=== PATIENT | female | born 1990 | race Caucasian/White ===

== ENCOUNTER 2017-09-03 09:19 | Emergency (ER) | payer OTHER ==
[2017-09-03 09:30] VITALS: TEMP 98.2; BMI 38.5
--- NOTE | 2017-09-03 09:31 | PDOC ---
History of Present Illness - General Chief Complaint: Vaginal Bleeding Stated Complaint: 10 WKS Time Seen by Provider: 09/03/17 09:30 - History of Present Illness Initial Comments: 09/03/17 10:52 Ms. Thompson is a 26 yo female w/ no pmh who presents for evaluation of several days of vaginal spotting that progressed to passing tissue with cramps late last night/this morning. She reports that she believes she is currently 10 weeks but that she got checked out for light spotting on Sunday at [facility] in [place] and was told she had demise. This is an unwanted but she was concerned by the tissue passing / pain and wanted to get checked out. The patient denies chest pain, shortness of breath, headache and dizziness. Denies fever, chills, nausea, vomit, diarrhea and constipation. Denies dysuria, frequency, urgency and hematuria. Allergies: NKDA Past History - Past Medical History Allergies/Adverse Reactions: Allergies Allergy/AdvReac Type Severity Reaction Status Date / Time No Known Allergies Allergy Verified 09/03/17 13:49 Home Medications: Ambulatory Orders Pnv No.122/Iron/Folic Acid [ Multi Tablet] 1 each PO DAILY 09/03/17 COPD: No Other medical history: denies - Suicide/Smoking/Psychosocial Hx Smoking History: Never smoked Have you smoked in the past 12 months: No Hx Alcohol Use: No Drug/Substance Use Hx: No Review of Systems - Review of Systems Comments:: 09/03/17 09:46 GENERAL/CONSTITUTIONAL: No fever or chills. No weakness. HEAD, EYES, EARS, NOSE AND THROAT: No change in vision. No ear pain or discharge. No sore throat. CARDIOVASCULAR: No chest pain or shortness of breath RESPIRATORY: No cough, wheezing, or hemoptysis. GASTROINTESTINAL: No nausea, vomiting, diarrhea or constipation. GENITOURINARY: No dysuria, frequency, or change in urination. MUSCULOSKELETAL: No joint or muscle swelling or pain. No neck or back pain. SKIN: No rash NEUROLOGIC: No headache, vertigo, loss of consciousness, or change in strength/ sensation. ENDOCRINE: No increased thirst. No abnormal weight change HEMATOLOGIC/LYMPHATIC: No anemia, easy bleeding, or history of blood clots. ALLERGIC/IMMUNOLOGIC: No hives or skin allergy. *Physical Exam - Vital Signs Last Vital Signs Temp Pulse Resp BP Pulse Ox 98.2 F 89 17 136/82 98 09/03/17 09:27 09/03/17 09:27 09/03/17 09:27 09/03/17 09:27 09/03/17 09:27 - Physical Exam Comments: 09/03/17 09:47 GENERAL: Awake, alert, and fully oriented, in no acute distress HEAD: No signs of trauma, normocephalic, atraumatic EYES: PERRLA, EOMI, sclera anicteric, conjunctiva clear ENT: Auricles normal inspection, hearing grossly normal, nares patent, oropharynx clear without exudates. Moist mucosa NECK: Normal ROM, supple, no lymphadenopathy, JVD, or masses LUNGS: No distress, speaks full sentences, clear to auscultation bilaterally HEART: Regular rate and rhythm, normal S1 and S2, no murmurs, rubs or gallops, peripheral pulses normal and equal bilaterally. ABDOMEN: Soft, nontender, normoactive bowel sounds. No guarding, no rebound. No masses EXTREMITIES: Normal inspection, Normal range of motion, no edema. No clubbing or cyanosis. NEUROLOGICAL: Cranial nerves II through XII grossly intact. Normal speech, normal gait, no focal sensorimotor deficits SKIN: Warm, Dry, normal turgor, no rashes or lesions noted. VAGINAL: Clots noted in os on vaginal exam. Internal os closed. No masses or CMT appreciated. ED Treatment Course - LABORATORY CBC & Chemistry Diagram: 09/03/17 10:57 09/03/17 10:20 Medical Decision Making - Medical Decision Making 09/03/17 10:52 Patient in process of completing . Will evaluate for retained POC and follow-up with OBGYN as appropriate. 09/03/17 13:37 US revealed 1.6 cm ap diameter suspected retained POC. Will consult SCREENER AND BLENDER for follow-up needs and disposition as appropriate. 09/03/17 14:17 Discussed with Rossy Paris (patient's peoplesoft taleo manager) who agreed with plan to follow -up outpatient this week. Patient will call for appt with one of the doctor's at clinic for evaluation this week. Patient verbalized understanding. Will d/c to home. *DC/Admit/Observation/Transfer Diagnosis at time of Disposition: Miscarriage - Discharge Dispostion Disposition: HOME - Referrals - Patient Instructions Printed Discharge Instructions: DI for Miscarriage Additional Instructions: Please follow-up as discussed with OBGYN doctor on Sunday. If any pain, fever, or other concerning symptoms please return. - Post Discharge Activity
--- NOTE | 2017-09-03 09:32 | PDOC ---
Attending Attestation - Resident Resident Name: Baltazar Oneal - HPI HPI: 09/03/17 10:56 Pt presents to the ED complaining of heavy vaginal bleeding and passing clots that started yesterday. Patient is 6 weeks and was seen in [place] yesterday for vaginal bleeding and was told that she had demise Presents today because the bleeding became much heavier overnight. - Physicial Exam PE: 09/03/17 10:59 Agree with resident's exam. There is a small clot in the os. External os is closed. Small amount of blood in vaginal vault. - Medical Decision Making 09/03/17 11:00 Pt presents to the ED complaining of vaginal bleeding. Os is closed on my exam. Will perform transvaginal US to check for retained products. If US shows no retained products, will discharge home with OB follow up. If US shows retained products, will consult TERRAPIN FISHER. 09/03/17 14:39 US shows thickened endometrial stripe. Case discussed with rubber block layer [place], who asks that the patient make an appointment for this week. Patient instructed to return to the ED for worsening bleeding, fevers or severe pain.
[2017-09-03 10:47] LABS: INR 1.17 (0.82-1.09); PROTHROMBIN TIME (PATIENT) 13.2 SEC (9.98-11.88)
[2017-09-03 10:50] LABS: ACTIVATED PTT 26.8 SECONDS (26.9-34.4)
[2017-09-03 10:57] LABS: ANION GAP 7 (8-16); BILIRUBIN,TOTAL 0.3 mg/dL (0.2-1.0); CO2 27 mmol/L (21-32); CREATININE 0.5 mg/dL (0.55-1.02); GLUCOSE,RANDOM 91 mg/dL (74-106); SGOT/AST 19 U/L (15-37); SGPT/ALT 19 U/L (12-78)
[2017-09-03 10:59] LABS: ALK PHOS 59 U/L (45-117)
[2017-09-03 11:04] LABS: BASOPHIL 0.6 % (0-2.0); EOSINOPHIL 2.5 % (0-4.5); MCHC 33.5 g/dl (32.0-36.0); MEAN CELL VOLUME 86.5 fl (80-96); MEAN PLT VOLUME 7.4 fl (7.5-11.1); NEUTROPHILS 62.9 % (42.8-82.8); PLATELET COUNT 230 K/MM3 (134-434); RDW 13.5 % (11.6-15.6); WHITE BLOOD COUNT 9.6 K/mm3 (4.0-10.0)
[2017-09-03] MEDS ORDERED: RHO(D) IMMUNE GLOBULIN 1,500 UNIT DISP.SYRIN IM ONE (12:04)
[2017-09-03 13:19] VITALS: BP 116/73; PULSE 84
== END 2017-09-03 15:03 | disposition home or self-care (01) ==
LOC: JER 09:19
PROC: 3E0234Z Introduction of Serum, Toxoid and Vaccine into Muscle, Percutaneous Approach (ICD-10-PCS; principal; 2017-09-03)
DX: O26.891 Other specified pregnancy related conditions, first trimester (principal); O02.1 Missed abortion; Z3A.10 10 weeks gestation of pregnancy
CPT/HCPCS: 36415; 76817-TC; 80053; 84702; 85025; 85610; 85730; 86850; 86900; 86901; 86999; 96372; 99283-25; J1561

== ENCOUNTER 2018-04-13 14:11 | Emergency (ER) | payer OTHER ==
[2018-04-13 14:17] VITALS: BP 130/64; PULSE 101; TEMP 97.8; BMI 42.0
--- NOTE | 2018-04-13 14:17 | PDOC ---
History of Present Illness - General Chief Complaint: Vaginal Bleeding Stated Complaint: VAGINAL BLEEDING (18 WKS ) Time Seen by Provider: 04/13/18 14:16 - History of Present Illness Initial Comments: 04/13/18 14:16 Ms. Thompson is a 27 yo female 18 weeks w/ significant pmh of prior miscarriage who presents for evaluation of 3 day history of vaginal itching and 1 day history of brownish discharge. She reports she noticed upon waking up yesterday morning and had to change her underwear. She is currently being followed by Dr. Avelina Shah and has had full evaluation to date. The patient denies chest pain, shortness of breath, headache and dizziness. Denies fever, chills, nausea, vomit, diarrhea and constipation. Denies dysuria, frequency, urgency and hematuria. Allergies: NKDA Past History - Past Medical History Allergies/Adverse Reactions: Allergies Allergy/AdvReac Type Severity Reaction Status Date / Time No Known Allergies Allergy Verified 04/13/18 14:15 Home Medications: Ambulatory Orders No122/Iron/Folic Acid [ Multi Tablet] 1 each PO DAILY 09/03/17 COPD: No - Suicide/Smoking/Psychosocial Hx Smoking History: Never smoked Have you smoked in the past 12 months: No Hx Alcohol Use: No Drug/Substance Use Hx: No Review of Systems - Review of Systems Comments:: 04/13/18 14:17 GENERAL/CONSTITUTIONAL: No fever or chills. No weakness. HEAD, EYES, EARS, NOSE AND THROAT: No change in vision. No ear pain or discharge. No sore throat. CARDIOVASCULAR: No chest pain or shortness of breath RESPIRATORY: No cough, wheezing, or hemoptysis. GASTROINTESTINAL: No nausea, vomiting, diarrhea or constipation. GENITOURINARY: +Vaginal discharge / itching as described. No dysuria, frequency , or change in urination. MUSCULOSKELETAL: No joint or muscle swelling or pain. No neck or back pain. SKIN: No rash NEUROLOGIC: No headache, vertigo, loss of consciousness, or change in strength/ sensation. ENDOCRINE: No increased thirst. No abnormal weight change HEMATOLOGIC/LYMPHATIC: No anemia, easy bleeding, or history of blood clots. ALLERGIC/IMMUNOLOGIC: No hives or skin allergy. *Physical Exam - Physical Exam Comments: 04/13/18 14:17 GENERAL: Awake, alert, and fully oriented, in no acute distress HEAD: No signs of trauma, normocephalic, atraumatic EYES: PERRLA, EOMI, sclera anicteric, conjunctiva clear ENT: Auricles normal inspection, hearing grossly normal, nares patent, oropharynx clear without exudates. Moist mucosa NECK: Normal ROM, supple, no lymphadenopathy, JVD, or masses LUNGS: No distress, speaks full sentences, clear to auscultation bilaterally HEART: Regular rate and rhythm, normal S1 and S2, no murmurs, rubs or gallops, peripheral pulses normal and equal bilaterally. ABDOMEN: Soft, nontender, normoactive bowel sounds. No guarding, no rebound. No masses EXTREMITIES: Normal inspection, Normal range of motion, no edema. No clubbing or cyanosis. NEUROLOGICAL: Cranial nerves II through XII grossly intact. Normal speech, normal gait, no focal sensorimotor deficits SKIN: Warm, Dry, normal turgor, no rashes or lesions noted. : No CMT, No adnexal tenderness, no blood in vaginal vault, scant white discharge noted, os closed. Medical Decision Making - Medical Decision Making 04/13/18 14:52 Ms. Thompson is a 27 yo female w/ pmh as described who presents for evaluation of discharge noted on exam yesterday. Patient currently stable and well appearing with no complaints of pain or other spotting. PE negative for concerning findings, on repeat interview patient relates discharge was more yellow in nature. Do not believe any bleeding at this time and will not administer rhogam. Bedside US revealed HR of 147 with good movement. Patient told to follow-up with ILLUSIONIST on Sunday for further evaluation and return to ER immediately if any bleeding. Patient verbalized agreement and understanding and will comply. 04/13/18 15:48 Labs grossly unconcerning as below. Repeat pulse 88. No concern for acute process at this time. Discharging to home for outpatient followup. Laboratory Results - last 24 hr 04/13/18 14:30 Urine Color Yellow Urine Appearance Clear Urine pH 6.0 Ur Specific Ranger 1.017 Urine Protein Negative Urine Glucose (UA) Negative Urine Ketones Negative Urine Blood Negative Urine Nitrite Negative Urine Bilirubin Negative Urine Urobilinogen 4.0 e.u/dl H Ur Leukocyte Esterase 1+ H Urine WBC (Auto) 3 Urine RBC (Auto) 1 Ur Epithelial Cells Few Urine Mucus Rare *DC/Admit/Observation/Transfer Diagnosis at time of Disposition: Vaginal discharge - Discharge Dispostion Disposition: HOME - Referrals Referrals: Ari Grace [Primary Care Provider] - Pauline Shah MD [Staff Physician] - - Patient Instructions Printed Discharge Instructions: DI for Vaginal Discharge Additional Instructions: You were evaluated today in the ER for vaginal discharge. As no blood was found on exam and no report of bleeding, decision was made not to administer rhogam at this time. Please follow-up with ILLUSIONIST on Sunday as discussed. Return to ER immediately if any vaginal bleeding, fever, chills, or other concerning symptoms. - Post Discharge Activity
--- NOTE | 2018-04-13 14:19 | PDOC ---
Attending Attestation - Resident Resident Name: Baltazar Oneal - HPI HPI: 04/13/18 15:33 pt presents to the ED complaining of a three day history of yellowish vaginal discharge along with mild vaginal itching. Patient is 18 weeks by dates. Denies vaginal bleeding, abdominal pain or urinary complaints. Patient is Rh negative and has not yet received rhogham for this . - Physicial Exam PE: 04/13/18 15:42 Agree with resident exam. PAtient is alert and oriented and in no acute distress. Abdomen is gravid, but is soft, non distended and non tender. - Medical Decision Making 04/13/18 15:47 Pt presents to the ED complaining of vaginal itching. Pelvic exam is normal. bedside US with movement and normal FHR. Patient denies vaginal bleeding on repeated questioning. Will discharge home with follow up with referral to her PECAN CLEANER.
[2018-04-13] MEDS ORDERED: RHO(D) IMMUNE GLOBULIN 1,500 UNIT DISP.SYRIN IM ONE (14:50)
[2018-04-13 15:31] LABS: URINE APPEARANCE CLEAR; URINE BILIRUBIN NEGATIVE (<2.0 mg/dL); URINE COLOR YELLOW; URINE GLUCOSE (UA) NEGATIVE (NEGATIVE); URINE KETONE NEGATIVE (NEGATIVE); URINE NITRITE NEGATIVE (NEGATIVE); URINE PROTEIN NEGATIVE (NEGATIVE); URINE UROBILINOGEN 4.0 E.U/dl mg/dL (0.2-1.0)
[2018-04-13 15:35] LABS: URINE LEUK ESTERASE 1+ (NEGATIVE)
[2018-04-13 15:38] LABS: EPI CELLS FEW /HPF (FEW); URINE MUCUS RARE
== END 2018-04-13 15:56 | disposition home or self-care (01) ==
LOC: JER 14:11
DX: O26.892 Other specified pregnancy related conditions, second trimester (principal); N89.8 Other specified noninflammatory disorders of vagina; Z3A.18 18 weeks gestation of pregnancy
CPT/HCPCS: 81003; 81015; 87086; 99283-25

== ENCOUNTER 2018-09-06 05:05 | Inpatient (IN) | payer OTHER ==
[2018-09-06 06:14] VITALS: BMI 44.4
[2018-09-06 06:15] LABS: BASO % 0.3 % (0-2.0); EOS % 1.2 % (0-4.5); HEMOGLOBIN 11.3 GM/dL (10.7-15.3); LYMPH % 23.6 % (8-40); MCH 28.2 pg (25.7-33.7); MCHC 33.3 g/dl (32.0-36.0); MEAN CELL VOLUME 84.4 fl (80-96); MEAN PLT VOLUME 8.1 fl (7.5-11.1); MONO % 6.3 % (3.8-10.2); NEUT % 68.6 % (42.8-82.8); PLATELET COUNT 239 K/MM3 (134-434); RBC 4.02 M/mm3 (3.60-5.2); RDW 14.7 % (11.6-15.6); WHITE BLOOD COUNT 8.8 K/mm3 (4.0-10.0)
[2018-09-06] MEDS ORDERED: DEXTROSE 5%-LACTATED RINGERS 1,000 ML IV ONE (06:19)
[2018-09-06 06:23] LABS: INR 0.96 (0.83-1.09); PROTHROMBIN TIME (PATIENT) 11.3 SEC (9.7-13.0)
[2018-09-06 06:26] LABS: ACTIVATED PTT 24.4 SECONDS (25.2-36.5)
[2018-09-06 07:32] LABS: ANION GAP 9 MMOL/L (8-16); BLOOD UREA NITROGEN 10 mg/dL (7-18); CHLORIDE 106 mmol/L (98-107); CO2 21 mmol/L (21-32); CREATININE 0.6 mg/dL (0.55-1.3); GLUCOSE,RANDOM 78 mg/dL (74-106); POTASSIUM 4.8 mmol/L (3.5-5.1); SODIUM 135 mmol/L (136-145)
[2018-09-06] MEDS ORDERED: OXYTOCIN 30 UNITS in 0.9% NS 30 UNIT/500 ML INFUS.BAG IVPB ONE (08:49)
[2018-09-06] MEDS ORDERED: FENTANYL/BUPIVACAINE/NS/PF - PCEA - 50 ML DISP.SYRIN EP ONE (09:27)
[2018-09-06] MEDS: ELECTROLYTE-148 SOLN 1,000 ML IV SCH (09:36)
--- NOTE | 2018-09-06 09:36 | HP ---
Past Medical History - Admission Chief Complaint: Labor pain History of Present Illness: 27 yo @ 39 weeks gestation, EDC 09/10/18, admitted for labor pain associated with leakage of fluid. History Source: Patient Limitations to Obtaining History: No Limitations - Past Medical History ...: 3 ...Para: 1 ...Term: 1 ...: 0 ...Spon : 1 ...Induced : 0 ...Multiple Gestation: 0 ...EDC by Sono: 09/10/18 - Past Surgical History Past Surgical History: Yes: None Hx Myomectomy: No Hx Transabdominal Cerclage: No - Smoking History Smoking history: Never smoked Have you smoked in the past 12 months: No - Alcohol/Substance Use Hx Alcohol Use: No - Social History Usual Living Arrangement: Yes: With Child History of Recent Travel: No Home Medications - Allergies Allergies/Adverse Reactions: Allergies Allergy/AdvReac Type Severity Reaction Status Date / Time No Known Allergies Allergy Verified 09/02/18 12:33 - Home Medications Home Medications: Ambulatory Orders No122/Iron/Folic Acid [ Multi Tablet] 1 each PO DAILY 09/03/17 Valacyclovir HCl [Valtrex] 400 mg PO DAILY 09/02/18 Family Disease History - Family Disease History Family History: Unremarkable Review of Systems - Review of Systems Constitutional: reports: No Symptoms Eyes: reports: No Symptoms HENT: reports: No Symptoms Neck: reports: No Symptoms Cardiovascular: reports: No Symptoms Respiratory: reports: No Symptoms Gastrointestinal: reports: No Symptoms Genitourinary: reports: Pain Breasts: reports: No Symptoms Reported Musculoskeletal: reports: No Symptoms Integumentary: reports: No Symptoms Neurological: reports: No Symptoms Endocrine: reports: No Symptoms Hematology/Lymphatic: reports: No Symptoms Psychiatric: reports: No Symptoms Pain Intensity: 6 Physical Exam - Maternity Vital Signs: Vital Signs Temperature 97.8 F 09/06/18 08:00 Pulse Rate 91 H 09/06/18 09:00 Respiratory Rate 20 09/06/18 09:00 Blood Pressure 127/72 09/06/18 09:00 O2 Sat by Pulse Oximetry (%) Constitutional: Yes: Well Nourished Eyes: Yes: Conjunctiva Clear HENT: Yes: Atraumatic Neck: Yes: Supple Cardiovascular: Yes: Regular Rate and Rhythm Lungs: Clear to auscultation - Abdominal Exam/OB Number of Fetuses: Single Presentation: Vertex Intensity: Moderate - Vaginal Exam/OB Dilatation (cm): 6 Effacement (%): 90 Amniotic Membrane Status: Ruptured Amniotic Fluid: Yes: Clear Presentation: Vertex/Position Station: -1 - Physical Exam ...Motor Strength: WNL Psychiatric: Yes: Alert, Oriented - Labs Lab Results: CBC, BMP 09/06/18 06:00 09/06/18 06:00 Problem List - Problems (1) Pain during labor Code(s): O99.89 - OTH DISEASES AND CONDITIONS COMPL PREG/CHLDBRTH; R52 - PAIN, UNSPECIFIED (2) 39 weeks gestation of Code(s): Z3A.39 - 39 WEEKS GESTATION OF Assessment/Plan 39 weeks gestation Labor pain Admit to L&D Analgesia as needed Anticipate
[2018-09-06] MEDS ORDERED: OXYTOCIN 30 UNITS in 0.9% NS 30 UNIT/500 ML INFUS.BAG IVPB SCH (09:45)
[2018-09-06] MEDS ORDERED: NALOXONE HCL 0.4 MG/ML VIAL IVPUSH PRN (10:45)
[2018-09-06] MEDS ORDERED: FENTANYL/BUPIVACAINE/NS/PF - PCEA - 50 ML DISP.SYRIN EP SCH (10:45)
[2018-09-06] MEDS ORDERED: PHENYLEPHRINE HCL 10 MG/1 ML SINGLE DOSE VIAL ONE (12:05)
[2018-09-06] MEDS ORDERED: ePHEDrine SULFATE 50 MG/1 ML AMPULE ONE (12:05)
--- NOTE | 2018-09-06 12:11 | PN ---
Progress Note (short form) - Note Progress Note: Patient seen and evaluated. She's lying comfortably in bed status post epidural anesthesia. FHR : + decelerations with contractions [place] : + regular contractions VE : 6-7 / 100 / -1 AROM A/P : 39 weeks gestation of Non-Reassuring FHR Stat Consent signed Prep and shave Problem List - Problems (1) Pain during labor Code(s): O99.89 - OTH DISEASES AND CONDITIONS COMPL PREG/CHLDBRTH; R52 - PAIN, UNSPECIFIED (2) 39 weeks gestation of Code(s): Z3A.39 - 39 WEEKS GESTATION OF
[2018-09-06] MEDS ORDERED: ceFAZolin SODIUM 1 GM VIAL ONE (12:16)
[2018-09-06] MEDS ORDERED: OXYTOCIN 10 UNITS/ML VIAL ONE (12:31)
[2018-09-06] MEDS ORDERED: MINERAL OIL/PETROLATUM,WHITE 3.5 GM TUBE ONE (12:53)
[2018-09-06 13:00] LABS: ARTERIAL BLD GAS O2 SATURATION 37.1 % (90-98.9); ARTERIAL BLOOD GAS BASE EXCESS -1.7 meq/l (-2-2); ARTERIAL BLOOD GAS PCO2 50.5 mmHg (35-45); ARTERIAL BLOOD GAS PO2 17.9 mmHg (80-100); ARTERIAL BLOOD GAS pH 7.31 (7.35-7.45)
[2018-09-06 13:07] LABS: VENOUS PC02 44.8 mmHg (38-52); VENOUS PH 7.35 (7.32-7.42)
[2018-09-06 13:08] LABS: VENOUS PO2 25.5 mmHg (28-48)
[2018-09-06] MEDS ORDERED: OXYTOCIN 20 UNITS in 0.9% NS 20 UNIT/1,000 ML INFUS.BAG IV ONE (13:08)
[2018-09-06] MEDS ORDERED: METHYLERGONOVINE MALEATE 0.2 MG/1 ML AMP IM PRN (13:13)
[2018-09-06] MEDS ORDERED: IBUPROFEN 800 MG/8 ML IJ IVPB PRN (13:13)
--- NOTE | 2018-09-06 13:17 | OP ---
Operative Note - Note: Operative Date: 09/06/18 Pre-Operative Diagnosis: Non reassuring heart rate Operation: Primary Low Transverse Findings: Nuchal cord x 1 Post-Operative Diagnosis: Same as Pre-op Surgeon: Pauline Shah Supervisor Livestock Yard: Jocelin Oden Anesthesia: Epidural Specimens Removed: Placenta Estimated Blood Loss (mls): 600 Operative Report Dictated: Yes
[2018-09-06] MEDS ORDERED: ONDANSETRON 4 MG/2 ML VIAL IVPUSH PRN (14:10)
[2018-09-06] MEDS: OXYTOCIN 20 UNITS in 0.9% NS 20 UNIT/1,000 ML INFUS.BAG IV SCH (15:21)
--- NOTE | 2018-09-06 17:34 | SURG ---
Surgery Chauffeur Note Chauffeur: Jocelin Oden PA-C Date of Service: 09/06/18 Diagnosis: Non reassuring heart rate Procedure: Primary Low Transverse C-Sectio I was present for the entirety of the operative procedure. For further detail, please refer to operative report. Visit type - Case Type Case Type: ED Admission - Emergency Emergency Visit: No - New patient This patient is new to me today: Yes Date on this admission: 09/06/18
[2018-09-06] MEDS: FERROUS SO4 325 MG TABLET (FP) PO SCH (23:26)
[2018-09-07 08:24] LABS: BASO % 0.2 % (0-2.0); EOS % 1.3 % (0-4.5); HEMATOCRIT 28.6 % (32.4-45.2); HEMOGLOBIN 9.5 GM/dL (10.7-15.3); LYMPH % 20.8 % (8-40); MCH 28.4 pg (25.7-33.7); MCHC 33.1 g/dl (32.0-36.0); MEAN CELL VOLUME 85.6 fl (80-96); MEAN PLT VOLUME 7.9 fl (7.5-11.1); MONO % 4.6 % (3.8-10.2); NEUT % 73.1 % (42.8-82.8); PLATELET COUNT 184 K/MM3 (134-434); RBC 3.34 M/mm3 (3.60-5.2); RDW 14.5 % (11.6-15.6); WHITE BLOOD COUNT 9.1 K/mm3 (4.0-10.0)
--- NOTE | 2018-09-07 08:52 | OP ---
DATE OF OPERATION: 09/06/2018 PREOPERATIVE DIAGNOSIS: Nonreassuring heart rate. POSTOPERATIVE DIAGNOSIS: Nonreassuring heart rate. PROCEDURE: Primary low transverse section. SURGEON: Melodie Shah MD FORMULA TECHNICIAN: MADONNA Gilmore ANESTHESIA: Epidural. COMPLICATIONS: None. ESTIMATED BLOOD LOSS: 600 mL. DESCRIPTION OF PROCEDURE: Patient was taken to the operating room where epidural anesthesia was found to be adequate. Patient was then prepped and draped in proper sterile fashion. A Pfannenstiel skin incision was made and carried down to through the underlying layer of fascia. The fascia was incised in the midline and extended laterally. The superior aspect of the fascial incision was then grasped with a Abby clamp, elevated, and the rectus muscles dissected off bluntly. Attention was then turned to the anterior aspect of the fascial incision which in a similar fashion was then grasped with Abby clamp, elevated, and the rectus muscle was dissected off bluntly. The rectus muscle was then in the midline. The peritoneum identified and entered sharply with the Metzenbaum scissors. The peritoneum incision was incised using the Metzenbaum scissors. This incision was extended laterally , and a bladder flap created digitally. Then the lower uterine segment was then incised using a 10 blade. This incision was extended laterally and a head delivered atraumatically. Nose and mouth were suctioned and the cord clamped and cut. The was handed to the awaiting sugar cane farm manager. The placenta was removed manually. The uterus was exteriorized and cleared of all clots and debris. The uterine incision was repaired using 0 Vicryl. The pelvis was then completely irrigated. The uterus was returned to the abdomen. The peritoneum was closed using 2-0 Biosyn. The fascia was reapproximated using 0 Vicryl. The skin was closed in a subcuticular fashion. Patient was taken to PACU in stable condition. PATHOLOGY: Placenta. MELODIE SHAH M.D. [id number] MTDD
[2018-09-07] MEDS: FERROUS SO4 325 MG TABLET (FP) PO SCH ×2 (09:14→21:58)
[2018-09-07] MEDS: PRENATAL VITAMINS W/ FOLIC ACID TABLET (FP) PO SCH (09:14)
--- NOTE | 2018-09-07 11:51 | PN ---
Progress Note (short form) - Note Progress Note: Anesthesiology Post-op 27 y.o. woman POD#1 s/p C/S under epidural anesthesia. Pt. is awake, resting comfortably in bed in NAD. She c/o some mild dizziness when she stands but otherwise has no complaints. Pain controlled, no headache, able to move legs. VSS. 27 y.o. woman with stable post-operative course s/p C/S. Encourage PO intake, continue management as per primary team.
[2018-09-07] MEDS: SIMETHICONE 80 MG TAB.CHEW (FP) PO PRN ×2 (12:16→22:04)
[2018-09-07] MEDS: ACETAMINOPHEN 325 MG TABLET (FP) PO PRN ×2 (12:16→22:04)
[2018-09-07] MEDS: IBUPROFEN 600 MG TABLET (FP) PO PRN ×2 (12:17→22:05)
[2018-09-07] MEDS ORDERED: BISACODYL 10 MG SUPP.RECT RC PRN (13:13)
--- NOTE | 2018-09-07 14:42 | PN ---
Post Progress Note - Subjective Subjective: 27 yo Para 2 status post primary , seen and evaluated. Doing well, she's out of bed to chair. No complaints Post Day: 1 Type of Delivery: Primary C/S Vital Signs: Vital Signs Temperature 98.2 F 09/07/18 10:00 Pulse Rate 91 H 09/07/18 10:00 Respiratory Rate 20 09/07/18 13:00 Blood Pressure 109/62 09/07/18 10:00 O2 Sat by Pulse Oximetry (%) 100 09/06/18 11:45 Breast Exam: Yes: Soft Uterus: Yes: Fundus Firm Incision: Yes: Dressing dry and intact Abdomen/GI: Yes: Abdomen soft, Tolerating PO Lochia: Yes: Rubra Lochia, amount: Small Extremities: Yes: Calves non-tender Activity: Ambulating - Labs Labs: CBC WBC 9.1 K/mm3 (4.0-10.0) 09/07/18 07:15 RBC 3.34 M/mm3 (3.60-5.2) L 09/07/18 07:15 Hgb 9.5 GM/dL (10.7-15.3) L 09/07/18 07:15 Hct 28.6 % (32.4-45.2) L D 09/07/18 07:15 MCV 85.6 fl (80-96) 09/07/18 07:15 MCH 28.4 pg (25.7-33.7) 09/07/18 07:15 MCHC 33.1 g/dl (32.0-36.0) 09/07/18 07:15 RDW 14.5 % (11.6-15.6) 09/07/18 07:15 Plt Count 184 K/MM3 (134-434) D 09/07/18 07:15 MPV 7.9 fl (7.5-11.1) 09/07/18 07:15 Absolute Neuts (auto) 6.6 K/mm3 (1.5-8.0) 09/07/18 07:15 Neutrophils % 73.1 % (42.8-82.8) 09/07/18 07:15 Lymphocytes % 20.8 % (8-40) 09/07/18 07:15 Monocytes % 4.6 % (3.8-10.2) 09/07/18 07:15 Eosinophils % 1.3 % (0-4.5) 09/07/18 07:15 Basophils % 0.2 % (0-2.0) 09/07/18 07:15 Nucleated RBC % 0 % (0-0) 09/07/18 07:15 Problem List - Problems (1) Pain during labor Code(s): O99.89 - OTH DISEASES AND CONDITIONS COMPL PREG/CHLDBRTH; R52 - PAIN, UNSPECIFIED (2) 39 weeks gestation of Code(s): Z3A.39 - 39 WEEKS GESTATION OF (3) Status post primary low transverse section Code(s): Z98.891 - HISTORY OF UTERINE SCAR FROM PREVIOUS SURGERY Assessment/Plan Status post primary Stable Ambulation Analgesia as needed Continue post op care
[2018-09-07] MEDS: ELECTROLYTE-148 SOLN 1,000 ML IV SCH (21:37)
[2018-09-07] MEDS: OXYTOCIN 20 UNITS in 0.9% NS 20 UNIT/1,000 ML INFUS.BAG IV SCH (21:37)
[2018-09-07] MEDS: DEXTROSE 5%-LACTATED RINGERS 1,000 ML IV SCH ×2 (21:37)
[2018-09-07] MEDS: oxyCODONE HCL 5 MG TABLET PO PRN (22:04)
[2018-09-08] MEDS: oxyCODONE HCL 5 MG TABLET PO PRN ×4 (02:49→19:33)
[2018-09-08] MEDS: SIMETHICONE 80 MG TAB.CHEW (FP) PO PRN ×4 (02:49→19:33)
[2018-09-08] MEDS: ACETAMINOPHEN 325 MG TABLET (FP) PO PRN ×4 (02:50→19:33)
[2018-09-08] MEDS: IBUPROFEN 600 MG TABLET (FP) PO PRN ×4 (02:50→19:34)
[2018-09-08] MEDS: PRENATAL VITAMINS W/ FOLIC ACID TABLET (FP) PO SCH (09:02)
[2018-09-08] MEDS: FERROUS SO4 325 MG TABLET (FP) PO SCH ×2 (09:02→22:37)
--- NOTE | 2018-09-08 14:03 | PN ---
Post Progress Note - Subjective Subjective: Doing well, no complaints. Post Day: 2 Type of Delivery: Primary C/S Vital Signs: Vital Signs Temperature 98.1 F 09/08/18 10:00 Pulse Rate 95 H 09/08/18 10:00 Respiratory Rate 20 09/08/18 10:00 Blood Pressure 106/57 L 09/08/18 10:00 O2 Sat by Pulse Oximetry (%) 100 09/06/18 11:45 Uterus: Yes: Fundus Firm Incision: Yes: Dressing dry and intact Abdomen/GI: Yes: Abdomen soft, Tolerating PO Lochia: Yes: Rubra Lochia, amount: Small Extremities: Yes: Calves non-tender Activity: Ambulating - Labs Labs: CBC WBC 9.1 K/mm3 (4.0-10.0) 09/07/18 07:15 RBC 3.34 M/mm3 (3.60-5.2) L 09/07/18 07:15 Hgb 9.5 GM/dL (10.7-15.3) L 09/07/18 07:15 Hct 28.6 % (32.4-45.2) L D 09/07/18 07:15 MCV 85.6 fl (80-96) 09/07/18 07:15 MCH 28.4 pg (25.7-33.7) 09/07/18 07:15 MCHC 33.1 g/dl (32.0-36.0) 09/07/18 07:15 RDW 14.5 % (11.6-15.6) 09/07/18 07:15 Plt Count 184 K/MM3 (134-434) D 09/07/18 07:15 MPV 7.9 fl (7.5-11.1) 09/07/18 07:15 Absolute Neuts (auto) 6.6 K/mm3 (1.5-8.0) 09/07/18 07:15 Neutrophils % 73.1 % (42.8-82.8) 09/07/18 07:15 Lymphocytes % 20.8 % (8-40) 09/07/18 07:15 Monocytes % 4.6 % (3.8-10.2) 09/07/18 07:15 Eosinophils % 1.3 % (0-4.5) 09/07/18 07:15 Basophils % 0.2 % (0-2.0) 09/07/18 07:15 Nucleated RBC % 0 % (0-0) 09/07/18 07:15 Problem List - Problems (1) Pain during labor Code(s): O99.89 - OTH DISEASES AND CONDITIONS COMPL PREG/CHLDBRTH; R52 - PAIN, UNSPECIFIED (2) 39 weeks gestation of Code(s): Z3A.39 - 39 WEEKS GESTATION OF (3) Status post primary low transverse section Code(s): Z98.891 - HISTORY OF UTERINE SCAR FROM PREVIOUS SURGERY Assessment/Plan Status post primary Stable Ambulation Analgesia as needed Continue post op care
[2018-09-09 07:00] LABS: BASO % 0.3 % (0-2.0); EOS % 2.3 % (0-4.5); HEMATOCRIT 26.4 % (32.4-45.2); HEMOGLOBIN 8.8 GM/dL (10.7-15.3); LYMPH % 19.2 % (8-40); MCH 28.3 pg (25.7-33.7); MCHC 33.2 g/dl (32.0-36.0); MEAN CELL VOLUME 85.2 fl (80-96); MEAN PLT VOLUME 7.5 fl (7.5-11.1); MONO % 4.3 % (3.8-10.2); NEUT % 73.9 % (42.8-82.8); PLATELET COUNT 215 K/MM3 (134-434); RDW 14.7 % (11.6-15.6); WHITE BLOOD COUNT 8.9 K/mm3 (4.0-10.0)
[2018-09-09 09:24] VITALS: BP 122/70; PULSE 101; TEMP 97.4
[2018-09-09] MEDS: PRENATAL VITAMINS W/ FOLIC ACID TABLET (FP) PO SCH (09:58)
[2018-09-09] MEDS: FERROUS SO4 325 MG TABLET (FP) PO SCH (09:58)
--- NOTE | 2018-09-09 15:29 | DS ---
Physical Exam-BUSINESS SUPPORT PROFESSIONAL Vital Signs: Vital Signs Temperature 97.4 F L 09/09/18 09:23 Pulse Rate 101 H 09/09/18 09:23 Respiratory Rate 20 09/09/18 09:23 Blood Pressure 122/70 09/09/18 09:23 O2 Sat by Pulse Oximetry (%) 100 09/06/18 11:45 Constitutional: Yes: Well Nourished Eyes: Yes: Conjunctiva Clear HENT: Yes: Atraumatic Neck: Yes: Supple Cardiovascular: Yes: Regular Rate and Rhythm Respiratory: Yes: Regular Gastrointestinal: Yes: Normal Bowel Sounds Pelvis: Yes: WNL External Genitalia: Yes: Normal Vaginal Exam: Yes: Normal Cervix: Yes: Normal Uterus: Yes: Firm Wound/Incision: Yes: Well Approximated Neurological: Yes: Alert, Oriented ...Motor Strength: WNL Psychiatric: Yes: Alert, Oriented Labs: CBC, BMP 09/09/18 06:00 09/06/18 06:00 Delivery - Delivery Type of Anesthesia: Epidural Episiotomy/Laceration: None EBL (cc): 700 Delivery, Single - Stages of Labor Date 1st Stage Initiatied: 09/06/18 Time 1st Stage Initiated: 01:00 Date of Delivery: 09/06/18 Time of Delivery: 12:31 Time Placenta Delivered: 12:33 - Condition of Infant Flour Mixer/Electrical Electronics Engineer Present: Yes Name: Radha Singh Gender: Female Weight: 6 lb 12 oz Position: Left, OT Total Hours ROM (Hrs/Mins): 3hr 11 min - 1 Minute Total Score: 9 5 Minutes Total Score: 9 - [place] Feeding Plan Initial Plan: Elected not to breastfeed exclusively throughout hospitalization Discharge Summary Reason For Visit: LABOR Procedures: Principal: Primary Hospital Course: Routine post op care Condition: Good - Instructions Diet, Activity, Other Instructions: Regular diet No driving, no lifting x 4 weeks. F/U with MD in 2 weeks Disposition: HOME - Home Medications Comprehensive Discharge Medication List: Ambulatory Orders No122/Iron/Folic Acid [ Multi Tablet] 1 each PO DAILY 09/03/17 Valacyclovir HCl [Valtrex] 400 mg PO DAILY 09/02/18 Ibuprofen [Motrin -] 600 mg PO Q4H PRN #60 tablet 09/09/18
--- NOTE | 2018-09-11 16:40 | PATH ---
Surgical Pathology Report Patient Name: MARLEE MEHTA Med. Rec. #: [id number] /Age/Gender: 1990 (Age: 27) / F Account: [id number] Location: [facility] OBS/OCEAN EXPORT COORDINATOR Taken: 09/06/2018 Received: 09/09/2018 Reported: 09/11/2018 Physicians: Pauline Shah M.D. Specimen(s) Received PLACENTA Clinical History , 39.3 gestational weeks, nonreassuring heart rate Final Diagnosis PLACENTA, SECTION: 494 G THIRD TRIMESTER PLACENTA WITH TRIVASCULAR UMBILICAL CORD AND UNREMARKABLE PLACENTAL MEMBRANES. Electronically Signed Yris Morse M.D. Gross Description The specimen is received fresh labeled placenta and is a 494 gram, 18.0 x 13.5 x 2.8 cm. placenta with attached membranes and umbilical cord. The attached membranes are poole, translucent with focal opacities and insert marginally. The umbilical cord measures 24 cm. in length and averages 1 cm. in diameter. The cord inserts eccentrically, 1 cm. to the nearest margin. No true knots or strictures are identified. Cut surface of the umbilical cord reveals 3 vessels. The surface is hebert-blue with minimal fibrin deposition and appropriate caliber vessels. The maternal surface is red-brown with focal defects. Sectioning reveals red-brown, spongy parenchyma. No lesions are identified. Independent Distributor sections are submitted in three cassettes as follows: 1- membrane rolls and umbilical cord; 2-3- full thickness sections of placenta. 09/10/2018 [facility]09/10/2018
== END 2018-09-09 11:40 | disposition home or self-care (01) | DRG 540 ==
LOC: JDEL 05:05 → JLDR 05:15 → J3W 13:14 → JLDR 13:19 → J3W 15:45
PROVIDERS: ADMIT Obstetrics & Gynecology; ATTEND Obstetrics & Gynecology
PROC: 10D00Z1 Extraction of Products of Conception, Low, Open Approach (ICD-10-PCS; principal; 2018-09-06)
DX: O76 Abnormality in fetal heart rate and rhythm complicating labor and delivery (principal); Z3A.39 39 weeks gestation of pregnancy; Z37.0 Single live birth
CPT/HCPCS: 36415; 36600; 80048; 82803; 85025; 85461; 85610; 85730; 86593; 86850; 86900; 86901; 86999; 88307-TC

== ENCOUNTER 2019-10-13 08:04 | Emergency (ER) | payer OTHER ==
[2019-10-13 08:12] VITALS: BP 120/45; BMI 45.1
--- NOTE | 2019-10-13 08:48 | PDOC ---
History of Present Illness - General Chief Complaint: Vaginal Bleeding Stated Complaint: vagnial bleed Time Seen by Provider: 10/13/19 08:20 - History of Present Illness Initial Comments: 10/13/19 08:46 29 year old A1 LNMP: 08/04/19 with no pmhx who presents with vaginal spotting for 2 days and heavy vaginal bleeding for 1 day with passage of clots and what she believes to be a fetus. She denies any abdominal pain but admits to some cramping. Denies n/v/d, denies chest pain, shortness of breath. No other complaints. ROS GENERAL/CONSTITUTIONAL: No fever or chills. No weakness. HEAD, EYES, EARS, NOSE AND THROAT: No sore throat. CARDIOVASCULAR: No chest pain or shortness of breath RESPIRATORY: No cough, wheezing, or hemoptysis. GASTROINTESTINAL: No nausea, vomiting, diarrhea or constipation. GENITOURINARY: No dysuria, frequency, or change in urination. MUSCULOSKELETAL: No joint or muscle swelling or pain. No neck or back pain. SKIN: No rash NEUROLOGIC: No headache, vertigo, loss of consciousness, or change in strength/ sensation. ENDOCRINE: No increased thirst. No abnormal weight change HEMATOLOGIC/LYMPHATIC: No anemia, easy bleeding, or history of blood clots. PE GENERAL: Awake, alert, and fully oriented, in no acute distress HEAD: No signs of trauma, normocephalic, atraumatic EYES: EOMI, sclera anicteric, conjunctiva clear ENT: oropharynx clear without exudates. Moist mucosa NECK: Normal ROM, supple LUNGS: No distress, speaks full sentences, clear to auscultation bilaterally HEART: Regular rate and rhythm, normal S1 and S2, no murmurs, rubs or gallops, peripheral pulses normal and equal bilaterally. ABDOMEN: Soft, nontender No guarding, no rebound. No masses EXTREMITIES : Normal inspection, Normal range of motion, no edema. No clubbing or cyanosis. NEUROLOGICAL: Cranial nerves II through XII grossly intact. Normal speech, no focal sensorimotor deficits SKIN: Warm, Dry, normal turgor, no rashes or lesions noted PELVIC: MDM DDX including but not limited to: complete vs threatened ED Course: Palma Mcdermott, PGY2 Emergency Medicine 10/13/19 10:58 Past History - Past Medical History Allergies/Adverse Reactions: Allergies Allergy/AdvReac Type Severity Reaction Status Date / Time No Known Allergies Allergy Verified 10/13/19 08:12 Home Medications: Ambulatory Orders No122/Iron/Folic Acid [ Multi Tablet] 1 each PO DAILY 09/03/17 Valacyclovir HCl [Valtrex] 400 mg PO DAILY 09/02/18 Ibuprofen [Motrin -] 600 mg PO Q4H PRN #60 tablet 09/09/18 Asthma: No Cancer: No Cardiac Disorders: No COPD: No Diabetes: No HTN: No Seizures: No Thyroid Disease: No - Reproductive History (#): 2 Para: 1 - Psycho Social/Smoking Cessation Hx Smoking History: Never smoked Have you smoked in the past 12 months: No Hx Alcohol Use: No Drug/Substance Use Hx: No Substance Use Type: None Hx Substance Use Treatment: No *Physical Exam - Vital Signs Last Vital Signs Temp Pulse Resp BP Pulse Ox 98.1 F 82 16 120/45 L 96 10/13/19 08:09 10/13/19 08:09 10/13/19 08:09 10/13/19 08:09 10/13/19 08:09 ED Treatment Course - LABORATORY CBC & Chemistry Diagram: 10/13/19 08:50 10/13/19 08:50 - RADIOLOGY Radiology Studies Ordered: Category Date Time Status TRANSVAGINAL US PREG [US] Stat Ultrasound 10/13/19 08:22 Ordered Discharge - Discharge Information Problems reviewed: Yes Clinical Impression/Diagnosis: Miscarriage Condition: Fair Disposition: HOME - Admission No - Follow up/Referral - Patient Discharge Instructions Patient Printed Discharge Instructions: DI for Miscarriage Additional Instructions: You were seen in the ER for vaginal bleeding while Your results showed a miscarriage and you were given Rhogam You should follow up with your OBGYN within 1 week Return to the ER if you have worsening bleeding, abdominal pain, fevers or any other concerning symptoms - Post Discharge Activity
[2019-10-13 08:59] LABS: BASO % 0.6 % (0-2.0); EOS % 3.6 % (0-4.5); HEMOGLOBIN 11.3 GM/dL (10.7-15.3); LYMPH % 29.1 % (8-40); MCH 27.2 pg (25.7-33.7); MCHC 33.3 g/dl (32.0-36.0); MEAN CELL VOLUME 81.6 fl (80-96); MEAN PLT VOLUME 7.4 fl (7.5-11.1); MONO % 3.7 % (3.8-10.2); PLATELET COUNT 290 K/MM3 (134-434); RBC 4.17 M/mm3 (3.60-5.2); RDW 14.4 % (11.6-15.6); WHITE BLOOD COUNT 9.4 K/mm3 (4.0-10.0)
--- NOTE | 2019-10-13 09:03 | PDOC ---
Attending Attestation - Resident Resident Name: Palma Mcdermott - ED Attending Attestation I have performed the following: I have examined & evaluated the patient, The case was reviewed & discussed with the resident, I agree w/resident's findings & plan, Exceptions are as noted - HPI HPI: 10/13/19 08:54 Ms. Thompson is a 29 year old F A1 LMP 08/04/19 (+ home test) with no pmhx who presents with vaginal spotting for 2 days and heavy vaginal bleeding for 1 day some abdominal cramping No lightheadedness or dizziness Denies n/v/d, denies chest pain, shortness of breath. No other complaints. 10/13/19 08:55 - Physicial Exam PE: 10/13/19 08:54 GENERAL: Awake, alert, and fully oriented, in no acute distress EYES: EOMI, sclera anicteric, conjunctiva clear ENT: oropharynx clear without exudates. Moist mucosa NECK: Normal ROM, supple LUNGS: No distress, speaks full sentences, clear to auscultation bilaterally HEART: Regular rate and rhythm, normal S1 and S2, no murmurs, rubs or gallops, peripheral pulses normal and equal bilaterally. ABDOMEN: Soft, nontender No guarding, no rebound. No masses PELVIC: please see Dr Mcdermott's note EXTREMITIES : Normal inspection, Normal range of motion, no edema. NEUROLOGICAL: Cranial nerves II through XII grossly intact. Normal speech, no focal sensorimotor deficits SKIN: Warm, Dry, normal turgor, no rashes or lesions noted - Medical Decision Making 10/13/19 09:40 First trimester female p/w vaginal bleeding and lower abdominal pain at <20 wks gestation. VS: Exam: As noted in Physical Exam section. DDX IBNLT: threatened/inevitable/incomplete/complete/septic , ectopic, PID, TOA/cervicitis, endometritis, ruptured ovarian cyst, ovarian torsion, malignancy, menorrhagia, endometriosis, rectal bleed, hematuria, constipation, fibroids, etc. W/U ordered: CBCD CMP Mg Phos Coags T&S UA UCx hCG Quant TVUS. 10/15/19 09:38 Laboratory Tests 10/13/19 10/13/19 08:50 08:50 WBC 9.4 Hgb 11.3 Hct 34.0 D Plt Count 290 D BUN 12.4 Creatinine 0.7 Beta HCG, Quant 34250.5 10/15/19 09:39 No intrauterine gestational sac Will plan to discharge to home Follow up with gy
[2019-10-13 10:07] LABS: ALBUMIN 3.9 g/dl (3.4-5.0); BILIRUBIN,TOTAL 0.3 mg/dL (0.2-1); BLOOD UREA NITROGEN 12.4 mg/dL (7-18); CREATININE 0.7 mg/dL (0.55-1.3); POTASSIUM 3.8 mmol/L (3.5-5.1); TOT PROT 7.9 g/dl (6.4-8.2)
[2019-10-13] MEDS ORDERED: RHO(D) IMMUNE GLOBULIN 1,500 UNIT DISP.SYRIN IM ONE (10:52)
[2019-10-13 11:45] VITALS: PULSE 86; TEMP 98.4
== END 2019-10-13 11:45 | disposition home or self-care (01) ==
LOC: JER 08:04
PROC: 3E0234Z Introduction of Serum, Toxoid and Vaccine into Muscle, Percutaneous Approach (ICD-10-PCS; principal; 2019-10-13)
DX: O26.891 Other specified pregnancy related conditions, first trimester (principal); O02.1 Missed abortion; N83.12 Corpus luteum cyst of left ovary; Z3A.09 9 weeks gestation of pregnancy
CPT/HCPCS: 36415; 76817-TC; 80053; 84702; 85025; 86850; 86900; 86901; 86999; 96372; 99284-25; J1561